=== PATIENT | female | born 1940 | race Caucasian/White ===

== ENCOUNTER 2021-04-26 19:39 | Inpatient (IN) | payer OTHER ==
[~2021-04-26] VITALS: Ht 167.6 cm; Wt 66.2 kg
[2021-04-26] MEDS ORDERED: SYNTHROID137 MCG PO (19:43)
[2021-04-26] MEDS ORDERED: HYDROCHLOROTH12.5 MG PO (19:44)
[2021-04-26] MEDS ORDERED: COZAAR100 MG PO (19:44)
[2021-04-26] MEDS ORDERED: CHILDREN'S ASPI81 MG PO (19:44)
[2021-04-26] MEDS ORDERED: METFORMIN HCL850 MG PO (19:45)
[2021-04-26] MEDS ORDERED: GLIPIZIDE XL10 MG PO (19:45)
[2021-05-01] MEDS ORDERED: AMOX-CLAV 875-1 EAC1 PO (14:26)
== END 2021-05-01 16:11 | disposition home or self-care (01) | DRG 392 ==
LOC: ER 19:39 → SURH 04-27 14:13
PROVIDERS: ADMIT Internal Medicine; ATTEND Internal Medicine
DX: K57.20 Diverticulitis of large intestine with perforation and abscess without bleeding (principal); E87.6 Hypokalemia